=== PATIENT | male | born 1940 | race Caucasian/White ===

== ENCOUNTER 2025-01-04 07:57 | Emergency (ER) | payer OTHER, SELFPAY ==
[2025-01-04 08:00] VITALS: BP 153/92
--- NOTE | 2025-01-04 08:22 | ED.GENMED ---
History of Present Illness
General
Chief Complaint: Breathing Problem
Time Seen by Provider: 01/04/25 08:08
History of Present Illness
History of Present Illness:
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 Patient states for the past month he has been having
shortness of breath that is mostly all day long but worse at night cough congestion. He denies any chest pain. No leg swelling hemoptysis travel malignancy. He states that he went to Dr. August from cardiology who evaluated his pacemaker and
stated that he did not need a replacement. He thinks that the symptoms could be related to sleep apnea however he has not had an outpatient sleep study completed yet. No fevers or chills. No numbness tingling. No weakness.
Phy Exam
Physical Exam
Physical Exam:
GENERAL: in no acute distress, obese
HEENT: normocephalic, extraocular movements intact, moist oral mucosa
NECK: normal inspection
RESPIRATORY: no respiratory distress, clear to auscultation bilaterally
CARDIOVASCULAR: regular rate and rhythm
ABDOMEN/: soft, non-distended, non-tender to palpation, no rebound or guarding
EXTREMITIES: non-tender, no edema/swelling
NEUROLOGIC: awake and alert, moves all extremities
SKIN: warm
Scores
Heart Failure Risk
Heart Failure Risk Score: Not Applicable
Course
Orders/Labs/Results
Orders:
Orders
01/04/25 08:21
Electrocardiogram (*1) Urgent
Reason for Study: Shortness of Breath
CT Chest PE Study Urgent
Comment:
Reason For Exam: sob
EKG- Treatment ONCE
01/04/25 08:33
Basic Metabolic Panel Urgent
Complete Blood Count/With Diff Urgent
NT-proBNP Urgent
Troponin I Urgent
Abnormal Lab Results
01/04/25
08:33
MCV 97.3 H fL
(80.0-94.0)
MCH 32.6 H pg
(27.0-31.0)
Absolute Monos (auto) 0.7 H 10^3/uL
(0.1-0.6)
Chloride 109 H mmol/L
(98-107)
BUN 23 H mg/dl
(9-20)
Glucose 111 H mg/dl
(70-99)
01/04/25 08:33
01/04/25 08:33
Vital Signs
Initial and Last Documented VS:
Initial Vital Signs
Temp Pulse Resp BP Pulse Ox
98.8 F 79 18 153/92 96
01/04/25 08:00 01/04/25 08:00 01/04/25 08:00 01/04/25 08:00 01/04/25 08:00
Last Documented Vital Signs
Temp Pulse Resp BP Pulse Ox
98.8 F 79 18 153/92 96
01/04/25 08:00 01/04/25 08:00 01/04/25 08:00 01/04/25 08:00 01/04/25 08:00
MDM/Problems Addressed
Differential Diagnosis Includes:
84-year-old male presenting to the emergency department with 1 month of shortness of breath, orthopnea, cough, congestion. On arrival patient is satting well on room air with a normal heart rate. His lungs are clear to auscultation. Differential
consists of PE versus CHF versus atypical ACS. Could certainly be related to sleep apnea. Will check blood work EKG and CT PE study.
*Critical Care Note
Total Time (30-74mins, 75-104mins- exclusive of procedures): Not Applicable
Update Note
Update Note:
On reevaluation patient resting comfortably. Blood work including troponin and BNP are normal. CT scan per my interpretation with no obvious pulmonary embolism. Per the official read he does have pleural plaques and thickening. He also has a
questionable 9.2 mm in the nodule. I did discuss these findings with patient. 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 He was also aware of these nodules but has not followed up with pulmonology. Ambulatory pulse ox was normal. Patient
in no respiratory distress with ambulation. Will discharge patient at this time with outpatient follow-up.
ED Attending Note
-
Portions of this chart may have been created with voice recognition software.� Occasional wrong word or��sound alike� substitutions may have occurred due to the inherent limitations of voice recognition software.
Discharge Plan
Departure
Patient Disposition: Home (Routine Discharge)
Date of Disposition: 01/04/25
Time of Disposition: 10:14
Patient with high blood pressure during this ER visit?: Yes
Discharge Problem:
Shortness of breath
Instructions: Shortness of Breath (Dyspnea) (DC)
Referrals:
Sonal Hickman, [Active] -
Rocky Ball MD [Family Provider] -
Activity Restrictions/Additional Instructions:
When a patient comes into the Emergency Department, many diagnostic studies such as x-rays & CT Scans are completed to identify injuries. During these diagnostic studies, there are sometimes things like cysts, nodules, tumors, etc. that are
'incidentally found' and seen on these studies. No further workup was required during your hospitalization for your incidental findings, but please follow-up with your Primary Care Physician/Specialist regarding the below incidental findings. Your
Primary Care Physician/Specialist will instruct you/guide you through any further workup.
Your incidental findings:
Possible 9.2 mm nodule versus nodular pleural thickening
Please make sure you follow-up with the [facility] [employer] as discussed. Please make sure you also have outpatient sleep studies completed.
Interventions
Interventions:
*Risk Screen - Suicide Last Done: 01/04/25 08:00
*General Assessment Last Done: 01/04/25 08:00
*Neglect/Abuse Screening Last Done: 01/04/25 08:04
Discharge Date and Time
Print Language: CHINESE
[2025-01-04 08:47] LABS: % Basophils 0.7 % (0-2); % Immature Granulocytes 0.4 % (0-0.5); % Monocytes 7.9 % (1.7-9.3); Absolute Basophils 0.1 10^3/uL (0-0.2); Absolute Eosinophils 0.5 10^3/uL (0-0.7); Absolute Monocytes 0.7 10^3/uL (0.1-0.6); Hematocrit 46.2 % (39.0-52.0); Hemoglobin 15.5 g/dL (13.0-18.0); Mean Corp Hgb Conc. 33.5 g/dL (33.0-37.0); Mean Corpuscular Hgb 32.6 pg (27.0-31.0); Mean Corpuscular Volume 97.3 fL (80.0-94.0); Mean Platelet Volume 10.4 fL (7.4-10.4); Nucleated Red Blood Cells % 0 % (-); Platelet Count 173 10^3/uL (130-400); Red Blood Cell Count 4.75 10^6/uL (4.70-6.10); Red Cell Dist. Width 13.2 % (11.5-14.5); White Blood Cell Count 8.2 10^3/uL (4.8-10.8)
[2025-01-04 09:04] LABS: Blood Urea Nitrogen 23 mg/dl (9-20); Calcium 9.4 mg/dl (8.4-10.2); Carbon Dioxide 27 mmol/L (22-30); Chloride 109 mmol/L (98-107); Glucose 111 mg/dl (70-99); Potassium 4.4 mmol/L (3.5-5.1); Sodium 142 mmol/L (135-145); eGFR > 60.00
[2025-01-04 09:13] LABS: NT-proBNP 103 pg/ml; Troponin I < 0.012 ng/ml
== END 2025-01-04 10:28 | disposition home or self-care (01) ==
LOC: EMR 07:57
PROVIDERS: EMERGENCY PHYSICIAN Student in an Organized Health Care Education/Training Program; FAMILY PHYSICIAN Internal Medicine
DX: R06.02 Shortness of breath (principal); R91.8 Other nonspecific abnormal finding of lung field; Z86.711 Personal history of pulmonary embolism; Z95.0 Presence of cardiac pacemaker
CPT/HCPCS: 99284; 71275; 80048; 83880; 84484; 85025; 93005; Q9967

== ENCOUNTER → 2025-04-15 13:25 | Outpatient (REF) | payer OTHER, SELFPAY | LOC: DHSLP 13:25 | PROVIDERS: ATTENDING PHYSICIAN Internal Medicine; FAMILY PHYSICIAN Internal Medicine | DX: G47.33 Obstructive sleep apnea (adult) (pediatric) (principal); R09.02 Hypoxemia | CPT/HCPCS: 95800 ==

== ENCOUNTER → 2025-07-09 09:14 | Outpatient (REF) | payer OTHER, SELFPAY | LOC: RAD 09:14 | PROVIDERS: ATTENDING PHYSICIAN Student in an Organized Health Care Education/Training Program; FAMILY PHYSICIAN Internal Medicine | DX: I73.9 Peripheral vascular disease, unspecified (principal); M79.662 Pain in left lower leg | CPT/HCPCS: 93922; 93925; 93971 ==